=== PATIENT | female | born 1980 | race African-American/Black ===

== ENCOUNTER 2018-06-07 15:57 | Inpatient (IN) | payer BC ==
[2018-06-07] MEDS ORDERED: Lidocaine 1% 50 ML MDV INJECT PRN (16:10)
[2018-06-07] MEDS ORDERED: Butorphanol 1 MG/ML SDV IVPUSH PRN (16:10)
[2018-06-07] MEDS ORDERED: Tranexamic Acid 1,000 MG in Sodium Chloride 0.9% 100 ML IV PRN (16:10)
[2018-06-07] MEDS ORDERED: Terbutaline 1 MG/ML SDV SUBCUT PRN (16:10)
[2018-06-07] MEDS ORDERED: Sodium Chloride 0.9% 2.5 ML Syringe FLUSH PRN (16:10)
[2018-06-07] MEDS ORDERED: Ondansetron 4 MG/2 ML SDV IV PRN (16:10)
[2018-06-07] MEDS ORDERED: Misoprostol 25 MCG (1/4 of 100 MCG) Tab VAG PRN ×2 (16:10→20:00)
[2018-06-07] MEDS ORDERED: Water For Irrigation,Sterile 1,000 ML Container IRR PRN (16:10)
[2018-06-07] MEDS ORDERED: Sodium Chloride 0.9% 10 ML Syringe FLUSH PRN (16:10)
[2018-06-07] MEDS ORDERED: Methylergonovine 0.2 MG/1 ML Amp IM PRN (16:10)
[2018-06-07] MEDS ORDERED: Misoprostol 200 MCG Tab PO PRN (16:10)
[2018-06-07] MEDS ORDERED: Nalbuphine 10 MG/1 ML Vial IVPUSH PRN (16:10)
[2018-06-07] MEDS ORDERED: Carboprost Tromethamine 250 MCG/1 ML Amp IM PRN (16:10)
[2018-06-07] MEDS ORDERED: Misoprostol 25 MCG (1/4 of 100 MCG) Tab PO PRN ×2 (16:10→20:00)
[2018-06-07] MEDS ORDERED: Oxytocin/0.9 % Sodium Chloride 30 UNIT/500 ML BAG IV SCH ×2 (16:15)
[2018-06-07] MEDS: Lactated Ringers 1,000 ML IV SCH ×3 (16:30→22:19)
--- NOTE | 2018-06-07 17:41 | PCM.LDHP ---
L&D History of Present Illness - General Date of Service: 06/07/18 Admit Problem/Dx: Patient Status Order with Admit Dx/Problem 06/07/18 16:10 Patient Status [ADT] Routine Admission Diagnosis/Problem Admission Diagnosis/Problem - planned Source of Information: Patient History Limitations: Reports: No Limitations - History of Present Illness Introduction:: The patient is a 38 year old female, , who presents to Labor and Delivery at 39 weeks and 2 days for induction of labor. The patient reports feeling intermittent contractions for the past few days. She denies vaginal bleeding or leakage of fluid. She denies headache, vision changes, chest pain, shortness of breath, nausea/vomiting, or edema. She has a history of HSV and has been taking valcyclovir since 34 weeks. She denies any sign of current/ recent outbreak. She is GBS negative. She plans for an epidural. - Related Data Allergies/Adverse Reactions: Allergies Allergy/AdvReac Type Severity Reaction Status Date / Time No Known Allergies Allergy Verified 03/24/15 17:49 Home Medications: Home Meds Cholecalciferol (Vitamin D3) [Vitamin D3] 400 units PO DAILY 09/25/15 [History] Norethindrone-E.estradiol-Iron [Microgestin Fe 1-20 Tablet] 1 tab PO DAILY 09/24 [History] Pantoprazole Sodium 40 mg PO DAILY 09/25/15 [History] Sucralfate 1 tab PO QID 09/25/15 [History] Past Medical History - Past Health History Medical/Surgical History: Denies Medical/Surgical History HEENT History: Reports: None Cardiovascular History: Reports: None Respiratory History: Reports: None Gastrointestinal History: Reports: GERD Genitourinary History: Reports: None Other Genitourinary History: kidney failure 12 yo, resolved, unknown etiology 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 Musculoskeletal History: Reports: None Neurological History: Reports: None Psychiatric History: Reports: None Endocrine/Metabolic History: Reports: Obesity/BMI 30+ Immunologic History: Reports: None Oncologic (Cancer) History: Reports: None Dermatologic History: Reports: None - Infectious Disease History Infectious Disease History: Reports: Chicken Pox, Herpes - Past Surgical History Head Surgeries/Procedures: Reports: None Social & Family History - Family History Family Medical History: Noncontributory Respiratory: Reports: Asthma, COPD Other Respiratory Family Hisory: father had both Neurological: Reports: TIA, Other (See Below) Other Neurological Family History: Grandmother, stroke. Sister, lupus. Psychiatric: Reports: None Oncologic: Reports: Lung Other Oncologic Family History: Father. - Tobacco Use Smoking Status *Q: Never Smoker Second Hand Smoke Exposure: No - Caffeine Use Caffeine Use: Reports: Coffee, Soda Other Caffeine Use: 0.5 cup of coffee every weekday at work, 1 bottle of soda every weekday at work - Recreational Drug Use Recreational Drug Use: No H&P Review of Systems - Review of Systems: Review Of Systems: See Below General: Reports: No Symptoms HEENT: Reports: No Symptoms Pulmonary: Reports: No Symptoms Cardiovascular: Reports: No Symptoms Gastrointestinal: Reports: No Symptoms Genitourinary: Reports: No Symptoms Musculoskeletal: Reports: No Symptoms Skin: Reports: No Symptoms Psychiatric: Reports: No Symptoms Neurological: Reports: No Symptoms Hematologic/Lymphatic: Reports: No Symptoms Immunologic: Reports: No Symptoms L&D Exam - Exam Exam: See Below - Vital Signs Weight: 104.326 kg - OB Specific Contraction Intensity: Mild Movement: Active Heart Tones: Present Heart Tones per Min: 145 Presentation: Vertex - Henry Score Henry Score Effacement: 31-50% Henry Score Dilation: 1-2 cm Henry Score 's Station: -3 - Exam General: Alert, Oriented, Cooperative HEENT: Conjunctiva Clear, EOMI, Posterior Pharynx Clear Neck: Supple, Trachea Midline Lungs: Clear to Auscultation, Normal Respiratory Effort Cardiovascular: Regular Rate, Regular Rhythm GI/Abdominal Exam: Normal Bowel Sounds, Soft Extremities: Normal Inspection, No Pedal Edema Skin: Warm, Dry, Intact Neurological: Cranial Nerves Intact Psychiatric: Alert, Normal Affect, Normal Mood - Patient Data Lab Results Last 24 hrs: Laboratory Results - last 24 hr 06/07/18 06/07/18 Range/Units 16:28 16:28 WBC 9.32 (4.0-11.0) K/uL RBC 3.89 L (4.30-5.90) M/uL Hgb 10.5 L (12.0-16.0) g/dL Hct 32.1 L (36.0-46.0) % MCV 82.5 (80.0-98.0) fL MCH 27.0 (27.0-32.0) pg MCHC 32.7 (31.0-37.0) g/dL RDW Std Deviation 45.2 (28.0-62.0) fl RDW Coeff of Manav 15 (11.0-15.0) % Plt Count 275 (150-400) K/uL MPV 10.80 (7.40-12.00) fL Nucleated RBC % 0.0 /100WBC Nucleated RBCs # 0 K/uL Blood Type O POSITIVE Antibody Screen NEGATIVE Result Diagrams: 06/07/18 16:28 Problem List Initiated/Reviewed/Updated: Yes Orders Last 24hrs: Active Orders 24 hr Category Date Time Status Patient Status [ADT] Routine ADT 06/07/18 16:10 Active Bedrest Bathroom Privileges [RC] ASDIRECTED Care 06/07/18 16:10 Active Communication Order [RC] ASDIRECTED Care 06/07/18 16:10 Active Communication Order [RC] ASDIRECTED Care 06/07/18 16:10 Active Communication Order [RC] ASDIRECTED Care 06/07/18 16:10 Active Heart Tones [RC] CONTINUOUS Care 06/07/18 16:10 Active Non Stress Test [RC] PER UNIT ROUTINE Care 06/07/18 16:10 Active May Shower [RC] ASDIRECTED Care 06/07/18 16:10 Active Notify Provider [RC] PRN Care 06/07/18 16:10 Active Notify Provider [RC] PRN Care 06/07/18 16:10 Active Notify Provider [RC] PRN Care 06/07/18 16:10 Active Notify Provider [RC] STAT Care 06/07/18 16:10 Active Oxygen Therapy [RC] ASDIRECTED Care 06/07/18 16:10 Active Up ad Keiry [RC] ASDIRECTED Care 06/07/18 16:10 Active Vaginal Exam [RC] PRN Care 06/07/18 16:10 Active Vaginal Exam [RC] PRN Care 06/07/18 16:10 Active Vital Signs [RC] PER UNIT ROUTINE Care 06/07/18 16:10 Active Vital Signs [RC] PER UNIT ROUTINE Care 06/07/18 16:10 Active Butorphanol [Stadol] Med 06/07/18 16:10 Active 1 mg IVPUSH Q1H PRN Carboprost Tromethamine [Hemabate DS] Med 06/07/18 16:10 Active 250 mcg IM ASDIRECTED PRN Lactated Ringers [Ringers, Lactated] 1,000 ml Med 06/07/18 16:15 Active IV ASDIRECTED Lidocaine 1% [Xylocaine 1%] Med 06/07/18 16:10 Active 50 ml INJECT ONETIME PRN Methylergonovine [Methergine] Med 06/07/18 16:10 Active 0.2 mg IM ASDIRECTED PRN Nalbuphine [Nubain] Med 06/07/18 16:10 Active 10 mg IVPUSH Q1H PRN Ondansetron [Zofran] Med 06/07/18 16:10 Active 4 mg IV Q6H PRN Oxytocin/0.9 % Sodium Chloride [Oxytocin 30 Unit/500 ML Med 06/07/18 16:15 Active -NS] 30 unit in 500 ml IV TITRATE Oxytocin/0.9 % Sodium Chloride [Oxytocin 30 Unit/500 ML Med 06/07/18 16:15 Active -NS] 30 unit in 500 ml IV TITRATE Sodium Chloride 0.9% [Saline Flush] Med 06/07/18 16:10 Active 10 ml FLUSH ASDIRECTED PRN Sodium Chloride 0.9% [Saline Flush] Med 06/07/18 16:10 Active 2.5 ml FLUSH ASDIRECTED PRN Terbutaline [Brethine] Med 06/07/18 16:10 Active 0.25 mg SUBCUT ASDIRECTED PRN Tranexamic Acid [Cyklokapron] 1,000 mg Med 06/07/18 16:10 Active Sodium Chloride 0.9% [Normal Saline] 100 ml IV ONETIME Water For Irrigation,Sterile [Sterile Water for Med 06/07/18 16:10 Active Irrigation] 1,000 ml IRR ASDIRECTED PRN miSOPROStol [Cytotec] Med 06/07/18 16:10 Active 200 mcg PO ONETIME PRN miSOPROStol [Cytotec] Med 06/07/18 16:10 Active 25 mcg PO ONETIME PRN miSOPROStol [Cytotec] Med 06/07/18 20:00 Active 25 mcg PO Q4H PRN miSOPROStol [Cytotec] Med 06/07/18 16:10 Active 25 mcg VAG ONETIME PRN miSOPROStol [Cytotec] Med 06/07/18 20:00 Active 25 mcg VAG Q4H PRN Scalp Electrode [WOMSER] Per Unit Routine Oth 06/07/18 16:10 Ordered Medication Administration Instruction [OM.PC] Q3H Oth 06/07/18 16:15 Ordered Peripheral IV Insertion Adult [OM.PC] Routine Oth 06/07/18 16:10 Ordered Resuscitation Status Routine Resus Stat 06/07/18 16:10 Ordered Medication Orders Butorphanol Tartrate (Stadol) 1 mg IVPUSH Q1H PRN PRN Reason: Pain Carboprost Tromethamine (Hemabate Ds) 250 mcg IM ASDIRECTED PRN PRN Reason: Post Hemorrhage Lactated Ringer's (Ringers, Lactated) 1,000 mls @ 150 mls/hr IV ASDIRECTED CESARIO Oxytocin/Sodium Chloride (Oxytocin 30 Unit/500 Ml-Ns) 30 unit in 500 mls @ 500 mls/hr IV TITRATE CESARIO Oxytocin/Sodium Chloride (Oxytocin 30 Unit/500 Ml-Ns) 30 unit in 500 mls @ 2 mls/hr IV TITRATE CESARIO; Protocol Tranexamic Acid 1,000 mg/ (Sodium Chloride) 110 mls @ 660 mls/hr IV ONETIME PRN PRN Reason: Bleeding Lidocaine HCl (Xylocaine 1%) 50 ml INJECT ONETIME PRN PRN Reason: Laceration repair Methylergonovine Maleate (Methergine) 0.2 mg IM ASDIRECTED PRN PRN Reason: Post Hemorrhage Misoprostol (Cytotec) 200 mcg PO ONETIME PRN PRN Reason: Post Hemorrhage Misoprostol (Cytotec) 25 mcg VAG ONETIME PRN PRN Reason: Cervical Ripening Misoprostol (Cytotec) 25 mcg VAG Q4H PRN PRN Reason: Cervical Ripening Misoprostol (Cytotec) 25 mcg PO ONETIME PRN PRN Reason: Cervical Ripening Misoprostol (Cytotec) 25 mcg PO Q4H PRN PRN Reason: Cervical Ripening Nalbuphine HCl (Nubain) 10 mg IVPUSH Q1H PRN PRN Reason: Pain (severe 7-10) Ondansetron HCl (Zofran) 4 mg IV Q6H PRN PRN Reason: Nausea/Vomiting Sodium Chloride (Saline Flush) 10 ml FLUSH ASDIRECTED PRN PRN Reason: Keep Vein Open Sodium Chloride (Saline Flush) 2.5 ml FLUSH ASDIRECTED PRN PRN Reason: Keep Vein Open Sterile Water (Sterile Water For Irrigation) 1,000 ml IRR ASDIRECTED PRN PRN Reason: delivery Terbutaline Sulfate (Brethine) 0.25 mg SUBCUT ASDIRECTED PRN PRN Reason: Tacysystole Assessment/Plan Comment:: 38 year old female, , at 39 weeks and 2 days presented to L&D for induction of labor: 1. Admit 2. Induction with cytotec to pitocin 3. GBS negative- no antibiotics 4. Epidural planned 5. Anticipate 6. Dr. Rizo updated.
[2018-06-07] MEDS ORDERED: Ropivacaine 0.2% 2 MG/ML 20 ML SDV ONE (23:08)
--- NOTE | 2018-06-07 23:44 | PCM.PREANE ---
Preanesthetic Assessment - Procedure Proposed Procedure: labor epidural - Anesthesia/Transfusion/Family Hx Anesthesia History: Prior Anesthesia Without Reaction Family History of Anesthesia Reaction: No Transfusion History: No Prior Transfusion(s) - Review of Systems Other: Reports: None - Physical Assessment Height: 5 ft 6 in Weight: 104.326 kg ASA Class: 2 Mental Status: Alert & Oriented x3 Airway Class: Mallampati = 1 Dentition: Reports: Normal Dentition, Implants Thyro-Mental Finger Breadths: 3 Mouth Opening Finger Breadths: 3 ROM/Head Extension: Full - Lab Values: Laboratory Last Values WBC 9.32 K/uL (4.0-11.0) 06/07/18 16:28 RBC 3.89 M/uL (4.30-5.90) L 06/07/18 16:28 Hgb 10.5 g/dL (12.0-16.0) L 06/07/18 16:28 Hct 32.1 % (36.0-46.0) L 06/07/18 16:28 MCV 82.5 fL (80.0-98.0) 06/07/18 16:28 MCH 27.0 pg (27.0-32.0) 06/07/18 16:28 MCHC 32.7 g/dL (31.0-37.0) 06/07/18 16:28 RDW Std Deviation 45.2 fl (28.0-62.0) 06/07/18 16:28 RDW Coeff of Manav 15 % (11.0-15.0) 06/07/18 16:28 Plt Count 275 K/uL (150-400) 06/07/18 16:28 MPV 10.80 fL (7.40-12.00) 06/07/18 16:28 Nucleated RBC % 0.0 /100WBC 06/07/18 16:28 Nucleated RBCs # 0 K/uL 06/07/18 16:28 Blood Type O POSITIVE 06/07/18 16:28 Antibody Screen NEGATIVE 06/07/18 16:28 - Allergies Allergies/Adverse Reactions: Allergies Allergy/AdvReac Type Severity Reaction Status Date / Time No Known Allergies Allergy Verified 03/24/15 17:49 - Blood Blood Available: Yes Product(s) Available: PRBC - Acknowledgements Anesthesia Type Planned: Epidural Pt an Appropriate Candidate for the Planned Anesthesia: Yes Alternatives and Risks of Anesthesia Discussed w Pt/Guardian: Yes Pt/Guardian Understands and Agrees with Anesthesia Plan: Yes PreAnesthesia Questionnaire - Past Health History Medical/Surgical History: Denies Medical/Surgical History HEENT History: Reports: None Cardiovascular History: Reports: None Respiratory History: Reports: None Gastrointestinal History: Reports: GERD Genitourinary History: Reports: None Other Genitourinary History: kidney failure 12 yo, resolved, unknown etiology 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 Musculoskeletal History: Reports: None Neurological History: Reports: None Psychiatric History: Reports: None Endocrine/Metabolic History: Reports: Obesity/BMI 30+ Immunologic History: Reports: None Oncologic (Cancer) History: Reports: None Dermatologic History: Reports: None - Infectious Disease History Infectious Disease History: Reports: Chicken Pox, Herpes - Past Surgical History Head Surgeries/Procedures: Reports: None - SUBSTANCE USE Smoking Status *Q: Never Smoker Second Hand Smoke Exposure: No Recreational Drug Use History: No - HOME MEDS Home Medications: Home Meds Cholecalciferol (Vitamin D3) [Vitamin D3] 400 units PO DAILY 09/25/15 [History] Norethindrone-E.estradiol-Iron [Microgestin Fe 1-20 Tablet] 1 tab PO DAILY 09/24 [History] Pantoprazole Sodium 40 mg PO DAILY 09/25/15 [History] Sucralfate 1 tab PO QID 09/25/15 [History] - CURRENT (IN HOUSE) MEDS Current Meds: Current Medications Butorphanol Tartrate (Stadol) 1 mg IVPUSH Q1H PRN PRN Reason: Pain Carboprost Tromethamine (Hemabate Ds) 250 mcg IM ASDIRECTED PRN PRN Reason: Post Hemorrhage Lactated Ringer's (Ringers, Lactated) 1,000 mls @ 150 mls/hr IV ASDIRECTED CESARIO Last Admin: 06/07/18 22:19 Dose: 150 mls/hr Oxytocin/Sodium Chloride (Oxytocin 30 Unit/500 Ml-Ns) 30 unit in 500 mls @ 500 mls/hr IV TITRATE CESARIO Oxytocin/Sodium Chloride (Oxytocin 30 Unit/500 Ml-Ns) 30 unit in 500 mls @ 2 mls/hr IV TITRATE CESARIO; Protocol Last Admin: 06/07/18 22:18 Dose: 2 munits/min, 2 mls/hr Tranexamic Acid 1,000 mg/ (Sodium Chloride) 110 mls @ 660 mls/hr IV ONETIME PRN PRN Reason: Bleeding Lidocaine HCl (Xylocaine 1%) 50 ml INJECT ONETIME PRN PRN Reason: Laceration repair Methylergonovine Maleate (Methergine) 0.2 mg IM ASDIRECTED PRN PRN Reason: Post Hemorrhage Misoprostol (Cytotec) 200 mcg PO ONETIME PRN PRN Reason: Post Hemorrhage Misoprostol (Cytotec) 25 mcg VAG ONETIME PRN PRN Reason: Cervical Ripening Last Admin: 06/07/18 17:55 Dose: 25 mcg Misoprostol (Cytotec) 25 mcg VAG Q4H PRN PRN Reason: Cervical Ripening Misoprostol (Cytotec) 25 mcg PO ONETIME PRN PRN Reason: Cervical Ripening Last Admin: 06/07/18 17:49 Dose: 25 mcg Misoprostol (Cytotec) 25 mcg PO Q4H PRN PRN Reason: Cervical Ripening Nalbuphine HCl (Nubain) 10 mg IVPUSH Q1H PRN PRN Reason: Pain (severe 7-10) Ondansetron HCl (Zofran) 4 mg IV Q6H PRN PRN Reason: Nausea/Vomiting Sodium Chloride (Saline Flush) 10 ml FLUSH ASDIRECTED PRN PRN Reason: Keep Vein Open Sodium Chloride (Saline Flush) 2.5 ml FLUSH ASDIRECTED PRN PRN Reason: Keep Vein Open Sterile Water (Sterile Water For Irrigation) 1,000 ml IRR ASDIRECTED PRN PRN Reason: delivery Terbutaline Sulfate (Brethine) 0.25 mg SUBCUT ASDIRECTED PRN PRN Reason: Tacysystole Last Admin: 06/07/18 20:42 Dose: 0.25 mg Discontinued Medications Fentanyl/Bupivacaine HCl (Ubutxlfo-Sqbez-Ix 2 Mcg/Ml-0.125%) Confirm Administered Dose 100 mls @ as directed .ROUTE .STK-MED ONE Stop: 06/07/18 23:09 Ropivacaine (Naropin 0.2%) Confirm Administered Dose 20 ml .ROUTE .STK-MED ONE Stop: 06/07/18 23:09
[2018-06-08] MEDS ORDERED: Benzocaine/Menthol 20%-0.5% Spray 78 GM Cannister TOP PRN (02:49)
[2018-06-08] MEDS ORDERED: Docusate Sodium 100 MG Cap PO PRN (02:49)
[2018-06-08] MEDS ORDERED: Acetaminophen 500 MG Tab PO PRN ×2 (02:49)
[2018-06-08] MEDS ORDERED: Ibuprofen 400 MG Tab PO PRN (02:49)
[2018-06-08] MEDS ORDERED: oxyCODONE 5 MG Tab PO PRN (02:49)
[2018-06-08] MEDS ORDERED: Bisacodyl 10 MG Supp RECTAL PRN (02:49)
[2018-06-08] MEDS ORDERED: Witch Hazel Medicated Pads 40/Jar TOP PRN (02:49)
[2018-06-08] MEDS ORDERED: Lanolin 100% Cream 7 GM Tube TOP PRN (02:49)
--- NOTE | 2018-06-08 02:53 | PCM.DEL ---
L & D Note - General Info Date of Service: 06/08/18 Mother's Due Date: 06/12/18 - Delivery Note Labor: Induced by Oxytocin Cervical Ripening Method: Misoprostil Delivery Outcome: Livebirth Infant Delivery Method: Spontaneous Vaginal Delivery-Single Presentation: Vertex Nuchal Cord: None Anesthesia Type: Epidural Laceration: None Placenta: Intact, Spontaneous Cord: 3 Vessels Resuscitation Needed: No [place]: Stimulated, Warmed, Lucile Used Score 1 min: 9 Score 5 min: 9 Second Stage Interventions: Reports: Pushing, Pulls Own Legs Back Delivery Comments (Free Text/Narrative):: of viable female, head delivered with good pushing, body followed easily. to mother's abdomen with RN at bedside for evaluation. Cord clamped x2 and cut by FOB. Cord blood collected. Placenta delivered grossly intact. Inspection noted intact perineum, EBL <100, APGARS 9/9, weight 7 lbs, 11 oz. Mother and baby left in stable condition for recovery. Induction Criteria - Henry Score Henry Score Dilation: 1-2 cm Henry Score Effacement: 40-50% Henry Score Infant's Station: -3 - Induction Gestational Age >/= 39 wks: Yes Estimated Pelvis: Reports: Adequate Reassuring Monitoring Strip: Yes Absence of Tachy Systole: Yes - Augmentation Estimated Pelvis: Reports: Adequate Weight Estimated:: Reports: AGA Reassuring Monitoring Strip: Yes Absence of Tachy Systole: Yes - General Info Date of Service: 06/08/18 Functional Status: Reports: Pain Controlled - Review of Systems General: Reports: No Symptoms HEENT: Reports: No Symptoms Pulmonary: Reports: No Symptoms Cardiovascular: Reports: No Symptoms Gastrointestinal: Reports: No Symptoms Genitourinary: Reports: No Symptoms Musculoskeletal: Reports: No Symptoms Skin: Reports: No Symptoms Neurological: Reports: No Symptoms Psychiatric: Reports: No Symptoms - Patient Data Weight - Most Recent: 104.326 kg Lab Results Last 24 Hours: Laboratory Results - last 24 hr 06/07/18 06/07/18 Range/Units 16:28 16:28 WBC 9.32 (4.0-11.0) K/uL RBC 3.89 L (4.30-5.90) M/uL Hgb 10.5 L (12.0-16.0) g/dL Hct 32.1 L (36.0-46.0) % MCV 82.5 (80.0-98.0) fL MCH 27.0 (27.0-32.0) pg MCHC 32.7 (31.0-37.0) g/dL RDW Std Deviation 45.2 (28.0-62.0) fl RDW Coeff of Manav 15 (11.0-15.0) % Plt Count 275 (150-400) K/uL MPV 10.80 (7.40-12.00) fL Nucleated RBC % 0.0 /100WBC Nucleated RBCs # 0 K/uL Blood Type O POSITIVE Antibody Screen NEGATIVE Med Orders - Current: Current Medications Butorphanol Tartrate (Stadol) 1 mg IVPUSH Q1H PRN PRN Reason: Pain Carboprost Tromethamine (Hemabate Ds) 250 mcg IM ASDIRECTED PRN PRN Reason: Post Hemorrhage Lactated Ringer's (Ringers, Lactated) 1,000 mls @ 150 mls/hr IV ASDIRECTED CESARIO Last Admin: 06/07/18 22:19 Dose: 150 mls/hr Oxytocin/Sodium Chloride (Oxytocin 30 Unit/500 Ml-Ns) 30 unit in 500 mls @ 500 mls/hr IV TITRATE CESARIO Oxytocin/Sodium Chloride (Oxytocin 30 Unit/500 Ml-Ns) 30 unit in 500 mls @ 2 mls/hr IV TITRATE CESARIO; Protocol Last Titration: 06/08/18 00:16 Dose: 4 munits/min, 4 mls/hr Tranexamic Acid 1,000 mg/ (Sodium Chloride) 110 mls @ 660 mls/hr IV ONETIME PRN PRN Reason: Bleeding Lidocaine HCl (Xylocaine 1%) 50 ml INJECT ONETIME PRN PRN Reason: Laceration repair Methylergonovine Maleate (Methergine) 0.2 mg IM ASDIRECTED PRN PRN Reason: Post Hemorrhage Misoprostol (Cytotec) 200 mcg PO ONETIME PRN PRN Reason: Post Hemorrhage Misoprostol (Cytotec) 25 mcg VAG ONETIME PRN PRN Reason: Cervical Ripening Last Admin: 06/07/18 17:55 Dose: 25 mcg Misoprostol (Cytotec) 25 mcg VAG Q4H PRN PRN Reason: Cervical Ripening Misoprostol (Cytotec) 25 mcg PO ONETIME PRN PRN Reason: Cervical Ripening Last Admin: 06/07/18 17:49 Dose: 25 mcg Misoprostol (Cytotec) 25 mcg PO Q4H PRN PRN Reason: Cervical Ripening Nalbuphine HCl (Nubain) 10 mg IVPUSH Q1H PRN PRN Reason: Pain (severe 7-10) Ondansetron HCl (Zofran) 4 mg IV Q6H PRN PRN Reason: Nausea/Vomiting Sodium Chloride (Saline Flush) 10 ml FLUSH ASDIRECTED PRN PRN Reason: Keep Vein Open Sodium Chloride (Saline Flush) 2.5 ml FLUSH ASDIRECTED PRN PRN Reason: Keep Vein Open Sterile Water (Sterile Water For Irrigation) 1,000 ml IRR ASDIRECTED PRN PRN Reason: delivery Terbutaline Sulfate (Brethine) 0.25 mg SUBCUT ASDIRECTED PRN PRN Reason: Tacysystole Last Admin: 06/07/18 20:42 Dose: 0.25 mg Discontinued Medications Fentanyl/Bupivacaine HCl (Kebocfyv-Jiwbb-Mc 2 Mcg/Ml-0.125%) Confirm Administered Dose 100 mls @ as directed .ROUTE .STK-MED ONE Stop: 06/07/18 23:09 Ropivacaine (Naropin 0.2%) Confirm Administered Dose 20 ml .ROUTE .STK-MED ONE Stop: 06/07/18 23:09 - Exam General: Alert, Oriented, Cooperative, No Acute Distress Lungs: Clear to Auscultation, Normal Respiratory Effort Cardiovascular: Regular Rate, Regular Rhythm GI/Abdominal Exam: Normal Bowel Sounds, Soft (Female) Exam: Normal External Exam, Normal Bimanual Exam, Vaginal Bleeding Extremities: Normal Inspection, No Pedal Edema Skin: Warm, Dry, Intact Neurological: No New Focal Deficit Psy/Mental Status: Alert, Normal Affect, Normal Mood - Problem List Review Problem List Initiated/Reviewed/Updated: Yes - Plan Plan:: 38 year old female, , at 39 weeks and 2 days presented to L&D for induction of labor: 1. Admit 2. Induction with cytotec to pitocin 3. GBS negative- no antibiotics 4. Epidural planned 5. Anticipate 6. Dr. Rizo updated. of viable female, routine post care, likely discharge tomorrow.
[2018-06-08] MEDS: Ibuprofen 800 MG Tab PO PRN (11:09)
[2018-06-09] MEDS: Ibuprofen 800 MG Tab PO PRN (07:46)
--- NOTE | 2018-06-09 07:47 | PCM.DCSUM1 ---
Discharge Summary - Hospital Course HPI Initial Comments: The patient is a 38 year old female, now , who is post day 1 from of a viable girl. Patient reports she is doing well. Pain well controlled , little vaginal bleeding, ambulating without difficulty, and going to the bathroom without difficulty. She states her baby is doing well. She is breast feeding and supplementing with formula. Diagnosis: Stroke: No - Discharge Data Discharge Date: 06/09/18 Discharge Disposition: Home, Self-Care 01 Condition: Good - Patient Instructions Diet: Usual Diet as Tolerated Activity: As Tolerated Driving: Do Not Drive Showering/Bathing: May Shower Notify Provider of: Fever, Increased Pain, Swelling and Redness, Drainage, Nausea and/or Vomiting Other/Special Instructions: You will follow up in the clinic at 6 weeks post . - Discharge Plan *PRESCRIPTION DRUG MONITORING PROGRAM REVIEWED*: No *COPY OF PRESCRIPTION DRUG MONITORING REPORT IN PATIENT SUNNY: No Home Medications: Home Meds Cholecalciferol (Vitamin D3) [Vitamin D3] 400 units PO DAILY 09/25/15 [History] Norethindrone-E.estradiol-Iron [Microgestin Fe 1-20 Tablet] 1 tab PO DAILY 09/24 [History] Pantoprazole Sodium 40 mg PO DAILY 09/25/15 [History] Sucralfate 1 tab PO QID 09/25/15 [History] Referrals: [facility] [Outside] Flori Lua CNM [Primary Care Provider] - 07/13/18 10:45 am - Discharge Summary/Plan Comment DC Time >30 min.: No Discharge Summary/Plan Comment: Follow up at OB clinic for post visit in 6 weeks. - General Info Date of Service: 06/09/18 Functional Status: Reports: Pain Controlled - Review of Systems General: Reports: No Symptoms HEENT: Reports: No Symptoms Pulmonary: Reports: No Symptoms Cardiovascular: Reports: No Symptoms Gastrointestinal: Reports: No Symptoms Genitourinary: Reports: No Symptoms Musculoskeletal: Reports: No Symptoms Skin: Reports: No Symptoms Neurological: Reports: No Symptoms Psychiatric: Reports: No Symptoms - Patient Data Vitals - Most Recent: Last Vital Signs Temp 97.5 F 06/09/18 05:00 Pulse 84 06/09/18 05:00 Resp 15 06/09/18 05:00 BP 111/66 06/09/18 05:00 Pulse Ox 95 06/09/18 05:00 Weight - Most Recent: 104.326 kg Med Orders - Current: Current Medications Acetaminophen (Tylenol Extra Strength) 500 mg PO Q4H PRN PRN Reason: Pain Acetaminophen (Tylenol Extra Strength) 1,000 mg PO Q4H PRN PRN Reason: Pain Last Admin: 06/08/18 21:18 Dose: 1,000 mg Benzocaine/Menthol (Dermoplast Pain Relief 20%-0.5% Elmer) 78 gm TOP ASDIRECTED PRN PRN Reason: Perineal Comfort Measure Bisacodyl (Dulcolax) 10 mg RECTAL ONETIME PRN PRN Reason: Constipation Docusate Sodium (Colace) 100 mg PO BID PRN PRN Reason: Constipation Emollient Ointment (Lansinoh Hpa) 0 gm TOP ASDIRECTED PRN PRN Reason: Sore Nipples Last Admin: 06/08/18 19:45 Dose: 1 tube Ibuprofen (Motrin) 400 mg PO Q4H PRN PRN Reason: Pain Ibuprofen (Motrin) 800 mg PO Q6H PRN PRN Reason: Pain Last Admin: 06/08/18 11:09 Dose: 800 mg Oxycodone HCl (Oxycodone) 5 mg PO Q2H PRN PRN Reason: Pain Last Admin: 06/09/18 04:56 Dose: 5 mg Witch Dawna (Tucks) 1 pad TOP ASDIRECTED PRN PRN Reason: comfort care Discontinued Medications Butorphanol Tartrate (Stadol) 1 mg IVPUSH Q1H PRN PRN Reason: Pain Carboprost Tromethamine (Hemabate Ds) 250 mcg IM ASDIRECTED PRN PRN Reason: Post Hemorrhage Lactated Ringer's (Ringers, Lactated) 1,000 mls @ 150 mls/hr IV ASDIRECTED CESARIO Last Admin: 06/07/18 22:19 Dose: 150 mls/hr Oxytocin/Sodium Chloride (Oxytocin 30 Unit/500 Ml-Ns) 30 unit in 500 mls @ 500 mls/hr IV TITRATE CESARIO Oxytocin/Sodium Chloride (Oxytocin 30 Unit/500 Ml-Ns) 30 unit in 500 mls @ 2 mls/hr IV TITRATE CESARIO; Protocol Last Titration: 06/08/18 00:16 Dose: 4 munits/min, 4 mls/hr Tranexamic Acid 1,000 mg/ (Sodium Chloride) 110 mls @ 660 mls/hr IV ONETIME PRN PRN Reason: Bleeding Fentanyl/Bupivacaine HCl (Nmbqnrqs-Tjrtq-Om 2 Mcg/Ml-0.125%) Confirm Administered Dose 100 mls @ as directed .ROUTE .[employer] ONE Stop: 06/07/18 23:09 Lidocaine HCl (Xylocaine 1%) 50 ml INJECT ONETIME PRN PRN Reason: Laceration repair Methylergonovine Maleate (Methergine) 0.2 mg IM ASDIRECTED PRN PRN Reason: Post Hemorrhage Misoprostol (Cytotec) 200 mcg PO ONETIME PRN PRN Reason: Post Hemorrhage Misoprostol (Cytotec) 25 mcg VAG ONETIME PRN PRN Reason: Cervical Ripening Last Admin: 06/07/18 17:55 Dose: 25 mcg Misoprostol (Cytotec) 25 mcg VAG Q4H PRN PRN Reason: Cervical Ripening Misoprostol (Cytotec) 25 mcg PO ONETIME PRN PRN Reason: Cervical Ripening Last Admin: 06/07/18 17:49 Dose: 25 mcg Misoprostol (Cytotec) 25 mcg PO Q4H PRN PRN Reason: Cervical Ripening Nalbuphine HCl (Nubain) 10 mg IVPUSH Q1H PRN PRN Reason: Pain (severe 7-10) Ondansetron HCl (Zofran) 4 mg IV Q6H PRN PRN Reason: Nausea/Vomiting Ropivacaine (Naropin 0.2%) Confirm Administered Dose 20 ml .ROUTE .[employer] ONE Stop: 06/07/18 23:09 Sodium Chloride (Saline Flush) 10 ml FLUSH ASDIRECTED PRN PRN Reason: Keep Vein Open Sodium Chloride (Saline Flush) 2.5 ml FLUSH ASDIRECTED PRN PRN Reason: Keep Vein Open Sterile Water (Sterile Water For Irrigation) 1,000 ml IRR ASDIRECTED PRN PRN Reason: delivery Terbutaline Sulfate (Brethine) 0.25 mg SUBCUT ASDIRECTED PRN PRN Reason: Tacysystole Last Admin: 06/07/18 20:42 Dose: 0.25 mg - Exam General: Reports: Alert, Oriented, Cooperative Lungs: Reports: Clear to Auscultation, Normal Respiratory Effort Cardiovascular: Reports: Regular Rate, Regular Rhythm GI/Abdominal Exam: Normal Bowel Sounds, Soft, Non-Tender (Female) Exam: Other (uterus below umbilicus) Extremities: Normal Inspection, No Pedal Edema Skin: Reports: Warm, Dry, Intact Neurological: Reports: No New Focal Deficit Psy/Mental Status: Reports: Alert, Normal Affect, Normal Mood
[2018-06-09 08:09] VITALS: BP 108/70
== END 2018-06-09 11:45 | disposition home or self-care (01) | DRG 560 ==
LOC: MW.OBCHECK 15:57 → MW.OB 16:00 → MW.OBCHECK 16:10 → MW.OB 16:10 → OBSVTOIN 06-08 02:31 → MW.OB 06-08 06:10
PROVIDERS: ADMIT Obstetrics & Gynecology; ATTEND Obstetrics & Gynecology
PROC: 10E0XZZ Delivery of Products of Conception, External Approach (ICD-10-PCS; principal; 2018-06-08)
PROC: 3E0P7VZ Introduction of Hormone into Female Reproductive, Via Natural or Artificial Opening (ICD-10-PCS; 2018-06-08)
PROC: 3E033VJ Introduction of Other Hormone into Peripheral Vein, Percutaneous Approach (ICD-10-PCS; 2018-06-08)
PROC: 00HU33Z Insertion of Infusion Device into Spinal Canal, Percutaneous Approach (ICD-10-PCS; 2018-06-08)
DX: O98.52 Other viral diseases complicating childbirth (principal); Z3A.39 39 weeks gestation of pregnancy; Z37.0 Single live birth; Z79.899 Other long term (current) drug therapy
CPT/HCPCS: 36415; 51702; 59025; 59409; 85027; 86850; 86900; 86901; A9270-GY; J2590; J2795; J3105; J7120

== ENCOUNTER 2020-02-25 13:40 | Emergency (ER) | payer SELFPAY ==
--- NOTE | 2020-02-25 16:37 | EDM.PDOC ---
ED HPI GENERAL MEDICAL PROBLEM - General Chief Complaint: Neuro Symptoms/Deficits Stated Complaint: NUMBNESS CHEST ZHU Time Seen by Provider: 02/25/20 16:04 Source of Information: Reports: Patient History Limitations: Reports: No Limitations - History of Present Illness INITIAL COMMENTS - FREE TEXT/NARRATIVE: 40-year-old female with history of anemia presents with stroke like symptoms. She woke up yesterday at 0500 with right upper extremity tingling and numbness, it later transitioned to perioral numbness. Symptoms waxes and wanes. Today she woke up and started complaining of left hand numbness, again waxes and wanes. She then started complaining of right eye blurry vision and flashing, followed by left sided headache localized to the left frontal lobe, described as pressure sensation, nonradiating. Her headache started 20 minutes ago. She says she had a transient episode of vision loss lasting seconds in her left eye and she felt short of breath. Patient denies fever, chills, abdominal pain. ROS: A 10-point review of systems, other than pertinent positives and negatives as stated per HPI, is otherwise negative Past medical history: No additional pertinent history Past Surgical history: No additional pertinent history Social history: No additional pertinent history Family history: No additional pertinent history PHYSICAL EXAM General: AOx4, GCS = 15, anxious HEENT: dry mucous membrane Neck: supple, no meningismus, no Kernig or Brudzinski Cardiac: S1S2 RRR Respiratory: CTAB, no crackles or rales, no wheezing Abdomen: Soft, nontender, no rebound or guarding, nondistended, no pulsatile mass. Back: nontender Musculoskeletal: NVI distally, no deformity Neuro: No focal deficits, CN 2 - 12 WNL. headache Pain Score (Numeric/FACES): 8 - Related Data Allergies Allergy/AdvReac Type Severity Reaction Status Date / Time No Known Allergies Allergy Verified 02/25/20 16:10 Home Meds: Home Meds Cholecalciferol (Vitamin D3) [Vitamin D3] 400 units PO DAILY 09/25/15 [History] Ascorbic Acid [Vitamin C] 02/25/20 [History] Control 02/25/20 [History] Iron,Carb/Vit C/Vit B12/Folic [Iron 100 Plus Tablet] 02/25/20 [History] Selium 02/25/20 [History] Past Medical History - Past Health History Medical/Surgical History: Denies Medical/Surgical History HEENT History: Reports: None Cardiovascular History: Reports: None Respiratory History: Reports: None Gastrointestinal History: Reports: GERD Genitourinary History: Reports: None Other Genitourinary History: kidney failure 12 yo, resolved, unknown etiology 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 Musculoskeletal History: Reports: None Neurological History: Reports: None Psychiatric History: Reports: None Endocrine/Metabolic History: Reports: Obesity/BMI 30+ Immunologic History: Reports: None Oncologic (Cancer) History: Reports: None Dermatologic History: Reports: None - Infectious Disease History Infectious Disease History: Reports: Chicken Pox, Herpes - Past Surgical History Head Surgeries/Procedures: Reports: None Social & Family History - Family History Family Medical History: Noncontributory Respiratory: Reports: Asthma, COPD Other Respiratory Family Hisory: father had both Neurological: Reports: TIA, Other (See Below) Other Neurological Family History: Grandmother, stroke. Sister, lupus. Psychiatric: Reports: None Oncologic: Reports: Lung Other Oncologic Family History: Father. - Tobacco Use Smoking Status *Q: Never Smoker - Caffeine Use Caffeine Use: Reports: Coffee, Soda Other Caffeine Use: 0.5 cup of coffee every weekday at work, 1 bottle of soda every weekday at work - Recreational Drug Use Recreational Drug Use: No ED ROS GENERAL - Review of Systems Review Of Systems: See Below (see dictation) ED EXAM, GENERAL - Physical Exam Exam: See Below (see dictation) EKG INTERPRETATION EKG Interpretation Comments: EK bpm, NSR, normal QRS interval, no STEMI. EKG and rhythm strip interpreted by me at 1405 Course - Vital Signs Last Recorded V/S: Last Vital Signs Temp 97.7 F 02/25/20 13:40 Pulse 97 02/25/20 13:40 Resp 18 02/25/20 13:40 BP 137/104 H 02/25/20 13:40 Pulse Ox 100 02/25/20 13:40 - Orders/Labs/Meds Orders: Active Orders 24 hr Category Date Time Status EKG 12 Lead [EKG Documentation Completion] [RC] STAT Care 02/25/20 14:05 Active Head wo Cont [CT] Routine Exams 02/25/20 16:22 Ordered - Re-Assessments/Exams Free Text/Narrative Re-Assessment/Exam: 02/25/20 1722 After prolonged observation in the ER, the patient improved and is currently stable for discharge. I performed a repeat exam and did not appreciate new abnormal findings. Patient exhibits normal vital signs and has a normal gait on road test. I repeated her neurologic exam, her NIHSS = 0. I advised the patient to return to the ER for reevaluation if symptoms worsened, including fever, worsening pain, or any other worrisome symptoms. I instructed the patient to follow up with their PCP within 2-3 days. MEDICAL DECISION MAKING: I reviewed the patients past medical records, lab and radiographic findings. I discussed the case with the patient. My differential diagnosis included: Conversion disorder, anxiety, low suspicion for intracranial process. tPA was considered but withheld secondary to nonfocal laterality. Symptoms were not consistent with CVA. Her NIHSS = 0, she had no hypoesthesia or hyperesthesia or paresthesia on my physical exam. I suspect her symptoms to be secondary to anxiety or psychogenic conversion disorder. Patient is stable for outpatient follow-up with neurology in the clinic. Departure - Departure Time of Disposition: 17:23 Disposition: Home, Self-Care 01 Condition: Good Clinical Impression: Paresthesia of arm, Numbness - Discharge Information *PRESCRIPTION DRUG MONITORING PROGRAM REVIEWED*: Not Applicable *COPY OF PRESCRIPTION DRUG MONITORING REPORT IN PATIENT SUNNY: Not Applicable Instructions: Paresthesia, [id number] Referrals: PCP,None [Primary Care Provider] - Forms: ED Department Discharge Additional Instructions: The need for follow-up, as well as the timing and circumstances, are variable depending upon the specifics of your emergency department visit. If you don't have a primary care physician on staff, we will provide you with a referral. We always advise you to contact your personal physician following an emergency department visit to inform them of the circumstance of the visit and for follow-up with them and/or the need for any referrals to a consulting specialist. The emergency department will also refer you to a specialist when appropriate. This referral assures that you have the opportunity for follow-up care with a specialist. All of these measure are taken in an effort to provide you with opt imal care, which includes your follow-up. Under all circumstances we always encourage you to contact your private physician who remains a resource for coordinating your care. When calling for follow-up care, please make the office aware that this follow-up is from your recent emergency room visit. If for any reason you are refused follow-up, please contact the [facility] Emergency Department at and asked to speak to the emergency department charge nurse. Neurology [facility] - Neurology Professional Building [address] [place] [address], [address] [place] [address] Sepsis Event Note (ED) - Evaluation Sepsis Screening Result: No Definite Risk - Focused Exam Vital Signs: Vital Signs Temp Pulse Resp BP Pulse Ox 02/25/20 13:40 97.7 F 97 18 137/104 H 100 - My Orders Last 24 Hours: My Active Orders 02/25/20 14:05 EKG 12 Lead [EKG Documentation Completion] [RC] STAT 02/25/20 16:22 Head wo Cont [CT] Routine - Assessment/Plan Last 24 Hours: My Active Orders 02/25/20 14:05 EKG 12 Lead [EKG Documentation Completion] [RC] STAT 02/25/20 16:22 Head wo Cont [CT] Routine
--- NOTE | 2020-02-25 17:07 | CR ---
Chest: Portable view of the chest was obtained. Comparison: Prior chest x-ray of 06/18/19. Heart size and mediastinum are normal. Lungs are clear with no acute parenchymal change. Bony structures are grossly intact. Impression: 1. Nothing acute is seen on portable chest x-ray. Diagnostic code #1 Study was dictated in MDT
[2020-02-25 17:29] VITALS: BP 107/81; PULSE 86
[2020-02-25 17:32] LABS: CARBON DIOXIDE,CO2 24.4 mmol/L (21.0-32.0); CHLORIDE,CL 101 mmol/L (98-107); GLUCOSE RANDOM 103 mg/dL (74-106); POTASSIUM,K 3.4 mmol/L (3.5-5.1); SODIUM,NA 138 mmol/L (136-145)
[2020-02-25 17:33] LABS: BLOOD UREA NITROGEN,BUN 10 mg/dL (7.0-18.0)
--- NOTE | 2020-02-25 17:34 | CT ---
Head CT Technique: Multiple axial brain were obtained. Intravenous contrast was not utilized. Comparison: No prior intracranial him imaging is available. Findings: Ventricles along with basal cisterns and sulci over the convexities appear within normal limits for the patient's age. No abnormal parenchymal densities are seen. No evidence of intracranial hemorrhage. No midline shift or mass effect is appreciated. Bone window settings were reviewed. No acute calvarial finding is appreciated. Impression: 1. Nothing acute is appreciated on noncontrast head CT exam. Diagnostic code #1 MTDD
== END 2020-02-25 17:29 | disposition home or self-care (01) ==
LOC: MW.ED 13:40
DX: R20.2 Paresthesia of skin (principal); R20.0 Anesthesia of skin; E66.9 Obesity, unspecified; Z68.33 Body mass index [BMI] 33.0-33.9, adult
CPT/HCPCS: 36415; 70450; 70450-26; 71045; 71045-26; 80053; 80305-QW; 81001; 81025; 84484; 85025; 85610; 85730; 93005; 99282; 99284-25

== ENCOUNTER 2020-06-28 08:30 | Emergency (ER) | payer OTHER ==
[2020-06-28] MEDS ORDERED: Morphine 4 MG/ML Syringe IVPUSH ONE (08:39)
[2020-06-28] MEDS ORDERED: Dexamethasone 10 MG/ML SDV IVPUSH ONE (08:39)
[2020-06-28] MEDS ORDERED: Aspirin 81 MG Tab.Chew PO ONE (08:39)
[2020-06-28] MEDS ORDERED: Ondansetron 4 MG/2 ML SDV IVPUSH ONE (08:39)
[2020-06-28] MEDS ORDERED: Sodium Chloride 0.9% 1,000 ML IV ONE (08:39)
[2020-06-28] MEDS ORDERED: Sodium Chloride 0.9% 2.5 ML Syringe FLUSH PRN (08:39)
[2020-06-28] MEDS ORDERED: Sodium Chloride 0.9% 10 ML Syringe FLUSH PRN (08:39)
--- NOTE | 2020-06-28 08:39 | EDM.PDOC ---
ED HPI GENERAL MEDICAL PROBLEM - General Chief Complaint: Chest Pain Stated Complaint: TIGHTNESS IN CHEST NUMBESS Time Seen by Provider: 06/28/20 08:45 Source of Information: Reports: Patient History Limitations: Reports: No Limitations - History of Present Illness INITIAL COMMENTS - FREE TEXT/NARRATIVE: 40-year-old female past medical history Sjogren's disease presents for multiple complaints. Patient states that for the last couple of days she has had headaches, body aches. Last night developed worsening headache continued through the morning. She also developed chest pressure "like somebody sitting on my chest" associated with shortness of breath. She denies fevers, cough. She has had a couple episodes of emesis. She has some generalized abdominal cramping pains but nothing localized. She feels generalized weakness. She notes that she called her neurologist who considered putting her on a course of prednisone but preferred that she come to the emergency department for more comprehensive evaluation and assessment. chest, abdominal Pain Score (Numeric/FACES): 8 - Related Data Allergies Allergy/AdvReac Type Severity Reaction Status Date / Time No Known Allergies Allergy Verified 06/28/20 08:39 Home Meds: Home Meds Cholecalciferol (Vitamin D3) [Vitamin D3] 2,000 units PO DAILY 09/25/15 [History] Ascorbic Acid [Vitamin C] 1 tab PO DAILY 02/25/20 [History] Control 02/25/20 [History] Iron,Carb/Vit C/Vit B12/Folic [Iron 100 Plus Tablet] 65 mg PO DAILY 02/25/20 [History] Selium 200 mg PO ASDIRECTED 02/25/20 [History] Biotin 5,000 mcg PO DAILY 06/28/20 [History] Fish Oil/Borage/Flax/Om3,6,9 1 [Lester 3-6-9 Complex Softgel] 1 tab PO DAILY 06/28/20 [History] predniSONE [Prednisone] 40 mg PO QAM 5 Days #10 tablet 06/28/20 [Rx] Past Medical History - Past Health History Medical/Surgical History: Denies Medical/Surgical History HEENT History: Reports: None Cardiovascular History: Reports: None Respiratory History: Reports: None Gastrointestinal History: Reports: GERD Genitourinary History: Reports: None Other Genitourinary History: kidney failure 12 yo, resolved, unknown etiology [employer]HOU[employer]ER History: Reports: , Spontaneous , Other (See Below) Other [employer]SE [employer]ER History: Retained placenta after previous vaginal delivery in 2015. Musculoskeletal History: Reports: None Neurological History: Reports: None Psychiatric History: Reports: None Endocrine/Metabolic History: Reports: Obesity/BMI 30+ Immunologic History: Reports: None Oncologic (Cancer) History: Reports: None Dermatologic History: Reports: None - Infectious Disease History Infectious Disease History: Reports: Chicken Pox, Herpes - Past Surgical History Head Surgeries/Procedures: Reports: None Social & Family History - Family History Family Medical History: No Pertinent Family History Respiratory: Reports: Asthma, COPD Other Respiratory Family Hisory: father had both Neurological: Reports: TIA, Other (See Below) Other Neurological Family History: Grandmother, stroke. Sister, lupus. Psychiatric: Reports: None Oncologic: Reports: Lung Other Oncologic Family History: Father. - Caffeine Use Caffeine Use: Reports: Coffee, Soda Other Caffeine Use: 0.5 cup of coffee every weekday at work, 1 bottle of soda every weekday at work ED ROS GENERAL - Review of Systems Review Of Systems: Comprehensive ROS is negative, except as noted in HPI. ED EXAM, GENERAL - Physical Exam Exam: See Below Exam Limited By: No Limitations General Appearance: Alert, WD/WN, No Apparent Distress, Anxious Eye Exam: Bilateral Eye: EOMI, PERRL Throat/Mouth: Normal Voice, No Airway Compromise Head: Atraumatic, Normocephalic Neck: Normal Inspection Respiratory/Chest: No Respiratory Distress, Lungs Clear, Normal Breath Sounds, No Accessory Muscle Use Cardiovascular: Normal Peripheral Pulses, No Edema, Tachycardia GI/Abdominal: Soft, Non-Tender Extremities: Normal Inspection Neurological: Alert, Oriented, CN II-XII Intact, Normal Cognition, No Motor/Sensory Deficits Psychiatric: Normal Affect, Normal Mood Skin Exam: Warm, Dry, Intact, Normal Color #1 Interpretation EKG Date: 06/28/20 Time: 08:28 Rhythm: Other (tachycardia) Rate (Beats/Min): 110 [place]: Normal P-Wave: Present QRS: Normal ST-T: Normal QT: Normal FL/PQ Interval: 176 Comparison: NA - No Prior EKG EKG Interpretation Comments: non-ischemic, tachycardia Course - Vital Signs Last Recorded V/S: Last Vital Signs Temp 98.1 F 06/28/20 08:35 Pulse 72 06/28/20 10:30 Resp 16 06/28/20 09:31 BP 118/82 06/28/20 10:30 Pulse Ox 99 06/28/20 10:30 - Orders/Labs/Meds Orders: Active Orders 24 hr Category Date Time Status EKG Documentation Completion [RC] STAT Care 06/28/20 08:39 Active Sodium Chloride 0.9% [Saline Flush] Med 06/28/20 08:39 Active 10 ml FLUSH ASDIRECTED PRN Sodium Chloride 0.9% [Saline Flush] Med 06/28/20 08:39 Active 2.5 ml FLUSH ASDIRECTED PRN Saline Lock Insert [OM.PC] Stat Oth 06/28/20 08:40 Ordered Medication Orders Sodium Chloride (Saline Flush) 10 ml FLUSH ASDIRECTED PRN PRN Reason: Keep Vein Open Last Admin: 06/28/20 08:49 Dose: 10 ml Documented by: JASMINE Sodium Chloride (Saline Flush) 2.5 ml FLUSH ASDIRECTED PRN PRN Reason: Keep Vein Open Last Admin: 06/28/20 08:49 Dose: 2.5 ml Documented by: JASMINE Labs: Laboratory Tests 06/28/20 06/28/20 06/28/20 Range/Units 08:35 08:35 08:35 WBC 7.05 (4.0-11.0) K/uL RBC 4.57 (4.30-5.90) M/uL Hgb 12.9 (12.0-16.0) g/dL Hct 41.1 (36.0-46.0) % MCV 89.9 (80.0-98.0) fL MCH 28.2 (27.0-32.0) pg MCHC 31.4 (31.0-37.0) g/dL RDW Std Deviation 44.5 (28.0-62.0) fl RDW Coeff of Manav 14 (11.0-15.0) % Plt Count 320 (150-400) K/uL MPV 10.40 (7.40-12.00) fL Neut % (Auto) 44.9 L (48.0-80.0) % Lymph % (Auto) 43.1 H (16.0-40.0) % [place] % (Auto) 8.1 (0.0-15.0) % Eos % (Auto) 3.0 (0.0-7.0) % Baso % (Auto) 0.9 (0.0-1.5) % Neut # (Auto) 3.2 (1.4-5.7) K/uL Lymph # (Auto) 3.0 H (0.6-2.4) K/uL [place] # (Auto) 0.6 (0.0-0.8) K/uL Eos # (Auto) 0.2 (0.0-0.7) K/uL Baso # (Auto) 0.1 (0.0-0.1) K/uL Nucleated RBC % 0.0 /100WBC Nucleated RBCs # 0 K/uL INR APTT (18.6-31.3) SEC D-Dimer, Quantitative (0.0-0.50) mg/L FEU Lactate 1.2 (0.20-2.00) mmol/L Sodium 140 (136-145) mmol/L Potassium 3.8 (3.5-5.1) mmol/L Chloride 106 (98-107) mmol/L Carbon Dioxide 24.4 (21.0-32.0) mmol/L BUN 10 (7.0-18.0) mg/dL Creatinine 1.1 H (0.6-1.0) mg/dL Est Cr Clr Drug Dosing 64.28 mL/min Estimated GFR (MDRD) 55.3 ml/min Glucose 111 H (74-106) mg/dL Calcium 8.8 (8.5-10.1) mg/dL Magnesium 2.2 (1.8-2.4) mg/dL Total Bilirubin 0.2 (0.2-1.0) mg/dL AST 21 (15-37) IU/L ALT 30 (14-63) IU/L Alkaline Phosphatase 80 (46-116) U/L Troponin I < 0.050 (0.000-0.056) ng/mL C-Reactive Protein 0.50 (0.00-0.90) mg/dL Total Protein 8.7 H (6.4-8.2) g/dL Albumin 3.7 (3.4-5.0) g/dL Globulin 5.0 H (2.6-4.0) g/dL Albumin/Globulin Ratio 0.7 L (0.9-1.6) Lipase 90 (73-393) U/L TSH 3rd Generation 0.95 (0.36-3.74) uIU/mL Urine Color Urine Appearance Urine pH (5.0-8.0) Ur Specific [place] (1.001-1.035) Urine Protein (NEGATIVE) mg/dL Urine Glucose (UA) (NEGATIVE) mg/dL Urine Ketones (NEGATIVE) mg/dL Urine Occult Blood (NEGATIVE) Urine Nitrite (NEGATIVE) Urine Bilirubin (NEGATIVE) Urine Urobilinogen (<2.0) EU/dL Ur Leukocyte Esterase (NEGATIVE) Urine HCG, Qual (NEGATIVE) Influenza Type A RNA (NEGATIVE) Influenza Type B RNA (NEGATIVE) SARS-CoV-2 RNA (NAZIA) (NEGATIVE) 06/28/20 06/28/20 06/28/20 Range/Units 08:35 09:35 10:35 WBC (4.0-11.0) K/uL RBC (4.30-5.90) M/uL Hgb (12.0-16.0) g/dL Hct (36.0-46.0) % MCV (80.0-98.0) fL MCH (27.0-32.0) pg MCHC (31.0-37.0) g/dL RDW Std Deviation (28.0-62.0) fl RDW Coeff of Manav (11.0-15.0) % Plt Count (150-400) K/uL MPV (7.40-12.00) fL Neut % (Auto) (48.0-80.0) % Lymph % (Auto) (16.0-40.0) % [place] % (Auto) (0.0-15.0) % Eos % (Auto) (0.0-7.0) % Baso % (Auto) (0.0-1.5) % Neut # (Auto) (1.4-5.7) K/uL Lymph # (Auto) (0.6-2.4) K/uL [place] # (Auto) (0.0-0.8) K/uL Eos # (Auto) (0.0-0.7) K/uL Baso # (Auto) (0.0-0.1) K/uL Nucleated RBC % /100WBC Nucleated RBCs # K/uL INR 0.98 APTT 27.9 (18.6-31.3) SEC D-Dimer, Quantitative 0.67 H (0.0-0.50) mg/L FEU Lactate (0.20-2.00) mmol/L Sodium (136-145) mmol/L Potassium (3.5-5.1) mmol/L Chloride (98-107) mmol/L Carbon Dioxide (21.0-32.0) mmol/L BUN (7.0-18.0) mg/dL Creatinine (0.6-1.0) mg/dL Est Cr Clr Drug Dosing mL/min Estimated GFR (MDRD) ml/min Glucose (74-106) mg/dL Calcium (8.5-10.1) mg/dL Magnesium (1.8-2.4) mg/dL Total Bilirubin (0.2-1.0) mg/dL AST (15-37) IU/L ALT (14-63) IU/L Alkaline Phosphatase (46-116) U/L Troponin I (0.000-0.056) ng/mL C-Reactive Protein (0.00-0.90) mg/dL Total Protein (6.4-8.2) g/dL Albumin (3.4-5.0) g/dL Globulin (2.6-4.0) g/dL Albumin/Globulin Ratio (0.9-1.6) Lipase (73-393) U/L TSH 3rd Generation (0.36-3.74) uIU/mL Urine Color YELLOW Urine Appearance CLEAR Urine pH 5.5 (5.0-8.0) Ur Specific [place] 1.025 (1.001-1.035) Urine Protein NEGATIVE (NEGATIVE) mg/dL Urine Glucose (UA) NEGATIVE (NEGATIVE) mg/dL Urine Ketones NEGATIVE (NEGATIVE) mg/dL Urine Occult Blood NEGATIVE (NEGATIVE) Urine Nitrite NEGATIVE (NEGATIVE) Urine Bilirubin NEGATIVE (NEGATIVE) Urine Urobilinogen 0.2 (<2.0) EU/dL Ur Leukocyte Esterase NEGATIVE (NEGATIVE) Urine HCG, Qual (NEGATIVE) Influenza Type A RNA NEGATIVE (NEGATIVE) Influenza Type B RNA NEGATIVE (NEGATIVE) SARS-CoV-2 RNA (NAZIA) NEGATIVE (NEGATIVE) 06/28/20 Range/Units 10:35 WBC (4.0-11.0) K/uL RBC (4.30-5.90) M/uL Hgb (12.0-16.0) g/dL Hct (36.0-46.0) % MCV (80.0-98.0) fL MCH (27.0-32.0) pg MCHC (31.0-37.0) g/dL RDW Std Deviation (28.0-62.0) fl RDW Coeff of Manav (11.0-15.0) % Plt Count (150-400) K/uL MPV (7.40-12.00) fL Neut % (Auto) (48.0-80.0) % Lymph % (Auto) (16.0-40.0) % [place] % (Auto) (0.0-15.0) % Eos % (Auto) (0.0-7.0) % Baso % (Auto) (0.0-1.5) % Neut # (Auto) (1.4-5.7) K/uL Lymph # (Auto) (0.6-2.4) K/uL [place] # (Auto) (0.0-0.8) K/uL Eos # (Auto) (0.0-0.7) K/uL Baso # (Auto) (0.0-0.1) K/uL Nucleated RBC % /100WBC Nucleated RBCs # K/uL INR APTT (18.6-31.3) SEC D-Dimer, Quantitative (0.0-0.50) mg/L FEU Lactate (0.20-2.00) mmol/L Sodium (136-145) mmol/L Potassium (3.5-5.1) mmol/L Chloride (98-107) mmol/L Carbon Dioxide (21.0-32.0) mmol/L BUN (7.0-18.0) mg/dL Creatinine (0.6-1.0) mg/dL Est Cr Clr Drug Dosing mL/min Estimated GFR (MDRD) ml/min Glucose (74-106) mg/dL Calcium (8.5-10.1) mg/dL Magnesium (1.8-2.4) mg/dL Total Bilirubin (0.2-1.0) mg/dL AST (15-37) IU/L ALT (14-63) IU/L Alkaline Phosphatase (46-116) U/L Troponin I (0.000-0.056) ng/mL C-Reactive Protein (0.00-0.90) mg/dL Total Protein (6.4-8.2) g/dL Albumin (3.4-5.0) g/dL Globulin (2.6-4.0) g/dL Albumin/Globulin Ratio (0.9-1.6) Lipase (73-393) U/L TSH 3rd Generation (0.36-3.74) uIU/mL Urine Color Urine Appearance Urine pH (5.0-8.0) Ur Specific [place] (1.001-1.035) Urine Protein (NEGATIVE) mg/dL Urine Glucose (UA) (NEGATIVE) mg/dL Urine Ketones (NEGATIVE) mg/dL Urine Occult Blood (NEGATIVE) Urine Nitrite (NEGATIVE) Urine Bilirubin (NEGATIVE) Urine Urobilinogen (<2.0) EU/dL Ur Leukocyte Esterase (NEGATIVE) Urine HCG, Qual NEGATIVE (NEGATIVE) Influenza Type A RNA (NEGATIVE) Influenza Type B RNA (NEGATIVE) SARS-CoV-2 RNA (NAZIA) (NEGATIVE) Meds: Medications Generic Name Dose Route Start Last Admin Trade Name Freq PRN Reason Stop Dose Admin Sodium Chloride 10 ml 06/28/20 08:39 06/28/20 08:49 Saline Flush FLUSH 10 ml ASDIRECTED PRN Administration Keep Vein Open Sodium Chloride 2.5 ml 06/28/20 08:39 06/28/20 08:49 Saline Flush FLUSH 2.5 ml ASDIRECTED PRN Administration Keep Vein Open Discontinued Medications Generic Name Dose Route Start Last Admin Trade Name Freq PRN Reason Stop Dose Admin Aspirin 324 mg 06/28/20 08:39 06/28/20 08:49 Aspirin PO 06/28/20 08:40 324 mg ONETIME ONE Administration Dexamethasone 8 mg 06/28/20 08:39 06/28/20 08:49 Decadron IVPUSH 06/28/20 08:40 8 mg ONETIME ONE Administration Sodium Chloride 1,000 mls @ 999 mls/hr 06/28/20 08:39 06/28/20 08:49 Normal Saline IV 06/28/20 09:39 999 mls/hr .Bolus ONE Administration Morphine Sulfate 4 mg 06/28/20 08:39 06/28/20 08:50 Morphine IVPUSH 01/27/21 08:40 4 mg ONETIME ONE Administration Ondansetron HCl 4 mg 06/28/20 08:39 06/28/20 08:50 Zofran IVPUSH 06/28/20 08:40 4 mg ONETIME ONE Administration - Re-Assessments/Exams Free Text/Narrative Re-Assessment/Exam: 06/28/20 09:44 Patient's troponin is negative. Her D-dimer is elevated. Will get a CTA chest to rule out pulmonary embolism or other pulmonary pathology. Head CT is normal. Chest x-ray is normal. 06/28/20 11:31 Patient feels substantially better. CT imaging is unremarkable. Her vitals have normalized. 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 I explained return precautions at length and patient seems to demonstrate very good health literacy. 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 This information is to outline your options for follow-up care. We provide all patients seen in our emergency department with a follow-up referral. The need for follow-up, as well as the timing and circumstances, are variable depending upon the specifics of your emergency department visit. If you don't have a primary care physician on staff, we will provide you with a referral. We always advise you to contact your personal physician following an emergency department visit to inform them of the circumstance of the visit and for follow-up with them and/or the need for any referrals to a consulting specialist. The emergency department will also refer you to a specialist when appropriate. This referral assures that you have the opportunity for follow-up care with a specialist. All of these measure are taken in an effort to provide you with optimal care, which includes your follow-up. Under all circumstances we always encourage you to contact your private physician who remains a resource for coordinating your care. When calling for follow-up care, please make the office aware that this follow-up is from your recent emergency room visit. If for any reason you are refused follow-up, please contact the [facility] Emergency Department at and asked to speak to the emergency department charge nurse. Please follow up with your primary care physician. If you do not have a primary care physician, see below: [facility] [address] [place] [id number] [facility] [address] [place] [address] [facility] [address] [place] [id number] Sepsis Event Note (ED) - Evaluation Sepsis Screening Result: No Definite Risk - Focused Exam Vital Signs: Vital Signs Temp Pulse Resp BP Pulse Ox 06/28/20 10:30 72 118/82 99 06/28/20 09:31 79 16 111/81 96 06/28/20 09:04 87 16 119/80 96 06/28/20 08:35 98.1 F 111 H 16 130/80 100 - My Orders Last 24 Hours: My Active Orders 06/28/20 08:39 EKG Documentation Completion [RC] STAT Sodium Chloride 0.9% [Saline Flush] 10 ml FLUSH ASDIRECTED PRN Sodium Chloride 0.9% [Saline Flush] 2.5 ml FLUSH ASDIRECTED PRN 06/28/20 08:40 Saline Lock Insert [OM.PC] Stat - Assessment/Plan Last 24 Hours: My Active Orders 06/28/20 08:39 EKG Documentation Completion [RC] STAT Sodium Chloride 0.9% [Saline Flush] 10 ml FLUSH ASDIRECTED PRN Sodium Chloride 0.9% [Saline Flush] 2.5 ml FLUSH ASDIRECTED PRN 06/28/20 08:40 Saline Lock Insert [OM.PC] Stat
[2020-06-28 09:29] LABS: BLOOD UREA NITROGEN,BUN 10 mg/dL (7.0-18.0); CARBON DIOXIDE,CO2 24.4 mmol/L (21.0-32.0); CHLORIDE,CL 106 mmol/L (98-107); GLUCOSE RANDOM 111 mg/dL (74-106); LIPASE 90 U/L (73-393); POTASSIUM,K 3.8 mmol/L (3.5-5.1); SODIUM,NA 140 mmol/L (136-145)
--- NOTE | 2020-06-28 09:41 | CT ---
INDICATION: Headache COMPARISON: Head CT dated 02/25/2020 TECHNIQUE: A CT volumetric acquisition was performed of the brain without IV contrast. FINDINGS: There is no evidence of a subdural or epidural hematoma. There is no evidence of subarachnoid hemorrhage or intraparenchymal bleeding. The CT images reveal a normal appearance of the cerebral ventricles and basal cisterns. There is no evidence of localized tissue infarction or mass effect. There is normal ashley white matter differentiation. The mastoid air cells and middle ear cavities are clear. The calvarium appears intact. There is normal aeration of the visualized paranasal sinuses. IMPRESSION: Negative head CT. Please note that all CT scans at this facility use dose modulation, iterative reconstruction, and/or weight-based dosing when appropriate to reduce radiation dose to as low as reasonably achievable. Dictated by Ryan Clark MD @ Jun 28 2020 9:37AM Signed by Dr. Ryan Clark @ Jun 28 2020 9:40AM
--- NOTE | 2020-06-28 09:41 | CR ---
INDICATION: Chest pain COMPARISON: Portable chest dated 02/25/2020 TECHNIQUE: Purple chest performed at 9:15 a.m. FINDINGS: The lungs are clear. The heart, mediastinum and pulmonary vessels are of normal size. There is no evidence of pleural fluid. IMPRESSION: Negative chest. Dictated by Ryan Clark MD @ Jun 28 2020 9:40AM Signed by Dr. Ryan Clark @ Jun 28 2020 9:41AM
[2020-06-28 10:24] LABS: CORONAVIRUS COVID-19 NAA NEGATIVE (NEGATIVE); INFLUENZA A NAA NEGATIVE (NEGATIVE); INFLUENZA B NAA NEGATIVE (NEGATIVE)
--- NOTE | 2020-06-28 11:20 | CT ---
Indication: Chest pain Technique: A CT volumetric acquisition was performed of the thorax during bolus infusion 80 cc of Isovue 370. Comparison: None Findings: The CT images demonstrate uniform vascular enhancement within the pulmonary arteries. There are no suspicious filling defects which would indicate pulmonary thromboemboli. Heart size appears normal. There is no evidence pericardial fluid or pleural fluid. There is no evidence of lymph node enlargement within the central mediastinum or either axilla. The esophagus appears normal. The lungs show symmetric inflation. There are no suspicious nodules, masses or infiltrates. There is no evidence of pneumothorax or pneumomediastinum. Pulmonary vessels are normal in size with no evidence of CHF. Impression: No evidence of pulmonary thromboembolism, CHF or pneumothorax. Please note that all CT scans at this facility use dose modulation, iterative reconstruction, and/or weight-based dosing when appropriate to reduce radiation dose to as low as reasonably achievable. Dictated by Ryan Clark MD @ Jun 28 2020 11:14AM Signed by Dr. Ryan Clark @ Jun 28 2020 11:17AM
[2020-06-28 12:09] VITALS: BP 122/88; PULSE 77
== END 2020-06-28 11:43 | disposition home or self-care (01) ==
LOC: MW.ED 08:30
DX: M35.01 Sjogren syndrome with keratoconjunctivitis (principal); Z20.822 Contact with and (suspected) exposure to COVID-19; E66.9 Obesity, unspecified; Z68.32 Body mass index [BMI] 32.0-32.9, adult
CPT/HCPCS: 0240U; 70450; 71045; 71275; 80053; 81003; 81025; 83605; 83690; 83735; 84443; 84484; 85025; 85379; 85610; 85730; 86140; 93005; 96374; 96375; 99285; A9270; J1100; J2270; J2405; J7030; 93010; 99283

== ENCOUNTER 2021-08-05 09:55 | Inpatient (IN) | payer BC ==
[2021-08-05] MEDS ORDERED: Misoprostol 25 MCG (1/4 of 100 MCG) Tab PO SCH (23:45)
[2021-08-05] MEDS ORDERED: Oxytocin/0.9 % Sodium Chloride 30 UNIT/500 ML BAG IV SCH ×2 (23:45)
[2021-08-05] MEDS ORDERED: Misoprostol 25 MCG (1/4 of 100 MCG) Tab VAG PRN ×2 (23:48)
[2021-08-05] MEDS ORDERED: Terbutaline 1 MG/ML SDV SUBCUT PRN (23:48)
[2021-08-05] MEDS ORDERED: Lidocaine 1% 50 ML MDV INJECT PRN (23:52)
[2021-08-05] MEDS ORDERED: Water For Irrigation,Sterile 1,000 ML Container IRR PRN (23:52)
[2021-08-05] MEDS ORDERED: Carboprost Tromethamine 250 MCG/1 ML Amp IM PRN (23:52)
[2021-08-05] MEDS ORDERED: Sodium Chloride 0.9% 2.5 ML Syringe FLUSH PRN (23:52)
[2021-08-05] MEDS ORDERED: Methylergonovine 0.2 MG/1 ML Amp IM PRN (23:52)
[2021-08-05] MEDS ORDERED: Tranexamic Acid 1,000 MG in Sodium Chloride 0.9% 100 ML IV PRN (23:52)
[2021-08-05] MEDS ORDERED: Sodium Chloride 0.9% 10 ML Syringe FLUSH PRN (23:52)
[2021-08-05] MEDS ORDERED: Sodium Chloride 0.9% 20 ML SDV IV PRN (23:52)
[2021-08-05] MEDS ORDERED: Misoprostol 200 MCG Tab PO PRN (23:52)
[2021-08-05] MEDS ORDERED: Butorphanol 1 MG/ML SDV IVPUSH PRN (23:52)
[2021-08-05] MEDS ORDERED: Ondansetron 4 MG/2 ML SDV IVPUSH PRN (23:52)
[2021-08-06] MEDS ORDERED: Calcium Carbonate 500 MG Tab.Chew PO PRN (01:38)
[2021-08-06] MEDS: Lactated Ringers 1,000 ML IV SCH ×2 (02:05→06:26)
[2021-08-06] MEDS ORDERED: Albuterol 0.083% 2.5 MG/3 ML Neb Soln NEB PRN (09:36)
[2021-08-06] MEDS ORDERED: diphenhydrAMINE 50 MG/ML SDV IVPUSH PRN ×2 (09:36→13:26)
[2021-08-06] MEDS ORDERED: Acetaminophen/oxyCODONE 325-5 MG Tab PO PRN ×2 (09:36→13:26)
[2021-08-06] MEDS ORDERED: Morphine 4 MG/ML VIAL IVPUSH PRN (09:36)
[2021-08-06] MEDS ORDERED: Ondansetron 4 MG/2 ML SDV IVPUSH PRN ×3 (09:36→13:26)
[2021-08-06] MEDS ORDERED: Naloxone 0.4 MG/ML SDV IVPUSH PRN (09:36)
[2021-08-06] MEDS ORDERED: Metoclopramide 10 MG/2 ML SDV IVPUSH PRN (09:36)
[2021-08-06] MEDS ORDERED: HYDROmorphone 1 MG/ML Syringe IVPUSH PRN (09:36)
[2021-08-06] MEDS ORDERED: fentaNYL 100 MCG/2 ML SDV IVPUSH PRN ×2 (09:36)
[2021-08-06] MEDS ORDERED: Dexamethasone 4 MG/ML 5 ML MDV ONE (09:54)
[2021-08-06] MEDS ORDERED: fentaNYL 100 MCG/2 ML SDV ONE (09:54)
[2021-08-06] MEDS ORDERED: Oxytocin 10 Units/1 ML SDV ONE (09:54)
[2021-08-06] MEDS ORDERED: Ropivacaine 0.5% 5 MG/ML 30 ML SDV ONE (09:54)
[2021-08-06] MEDS ORDERED: Ondansetron 4 MG/2 ML SDV ONE (09:54)
[2021-08-06] MEDS ORDERED: Sodium Chloride 0.9% 10 ML Syringe FLUSH PRN (09:55)
[2021-08-06] MEDS ORDERED: ceFAZolin 2 GM in Premix Bag 1 BAG IV ONE (09:55)
[2021-08-06] MEDS ORDERED: Citric Acid/Sodium Citrate Solution 30 ML Cup PO ONE (09:55)
[2021-08-06] MEDS ORDERED: Sodium Chloride 0.9% 2.5 ML Syringe FLUSH PRN (09:55)
[2021-08-06] MEDS ORDERED: Sodium Chloride 0.9% 20 ML SDV IV PRN (09:55)
[2021-08-06] MEDS ORDERED: Morphine PF 10 MG/10 ML SDV ONE (09:55)
[2021-08-06] MEDS ORDERED: Oxytocin/0.9 % Sodium Chloride 30 UNIT/500 ML BAG IV SCH (10:00)
[2021-08-06] MEDS ORDERED: Lactated Ringers 1,000 ML IV SCH ×2 (10:00→13:30)
[2021-08-06] MEDS ORDERED: Octyl 2-Cyanoacrylate 1 Tube ONE (11:23)
[2021-08-06] MEDS ORDERED: Misoprostol 200 MCG Tab RECTAL PRN (13:26)
[2021-08-06] MEDS ORDERED: Lanolin 100% Cream 7 GM Tube TOP PRN (13:26)
[2021-08-06] MEDS ORDERED: Methylergonovine 0.2 MG/1 ML Amp IM PRN (13:26)
[2021-08-06] MEDS ORDERED: Bisacodyl 10 MG Supp RECTAL PRN (13:26)
[2021-08-06] MEDS ORDERED: Tranexamic Acid 1,000 MG in Sodium Chloride 0.9% 100 ML IV PRN (13:26)
[2021-08-06] MEDS ORDERED: Oxytocin 10 Units/1 ML SDV IM PRN (13:26)
[2021-08-06] MEDS: Ketorolac 30 MG/ML SDV IVPUSH SCH ×2 (13:58→20:44)
[2021-08-06] MEDS: Docusate Sodium 100 MG Cap PO SCH (20:40)
[2021-08-07] MEDS: Ketorolac 30 MG/ML SDV IVPUSH SCH ×3 (02:58→15:12)
[2021-08-07] MEDS: Docusate Sodium 100 MG Cap PO SCH ×2 (09:06→22:00)
[2021-08-07] MEDS: Acetaminophen/oxyCODONE 325-5 MG Tab PO PRN ×2 (12:45→18:25)
[2021-08-08] MEDS: Ibuprofen 800 MG Tab PO PRN ×2 (01:16→12:16)
[2021-08-08] MEDS: Acetaminophen/oxyCODONE 325-5 MG Tab PO PRN ×3 (01:16→12:17)
[2021-08-08] MEDS: Docusate Sodium 100 MG Cap PO SCH ×2 (01:16→09:26)
[2021-08-08 13:24] VITALS: BP 106/68; PULSE 92
== END 2021-08-08 13:00 | disposition home or self-care (01) | DRG 540 ==
LOC: MW.OB 09:55 → OBSVTOIN 08-06 09:55 → MW.OB 08-06 18:04
PROVIDERS: ADMIT Obstetrics & Gynecology Obstetrics; ATTEND Obstetrics & Gynecology Obstetrics
PROC: 10D00Z1 Extraction of Products of Conception, Low, Open Approach (ICD-10-PCS; principal; 2021-08-06)
DX: O98.52 Other viral diseases complicating childbirth (principal); B00.9 Herpesviral infection, unspecified; Z37.0 Single live birth; O99.62 Diseases of the digestive system complicating childbirth; K21.9 Gastro-esophageal reflux disease without esophagitis; O99.214 Obesity complicating childbirth; Z20.822 Contact with and (suspected) exposure to COVID-19; Z3A.38 38 weeks gestation of pregnancy
CPT/HCPCS: 01961; 36415; 59025; 64488; 81003; 85014; 85018; 85027; 86592; 86850; 86900; 86901; A9270-GY; J0131; J1100; J1885; J2274; J2370; J2405; J2590; J2795; J3010; J7120; U0002

== ENCOUNTER 2021-10-10 02:06 | Emergency (ER) | payer BC ==
[2021-10-10] MEDS ORDERED: Alum Hydro/Mag Hydro/Simeth XS 15 ML, Lidocaine 2% 5 ML PO ONE ×2 (02:26)
[2021-10-10] MEDS ORDERED: Aspirin 81 MG Tab.Chew PO ONE (02:26)
[2021-10-10] MEDS ORDERED: Famotidine 20 MG Tab PO ONE (02:26)
[2021-10-10 02:57] LABS: BLOOD UREA NITROGEN,BUN 15 mg/dL (7.0-18.0); CARBON DIOXIDE,CO2 25.2 mmol/L (21.0-32.0); CHLORIDE,CL 101 mmol/L (98-107); GLUCOSE RANDOM 94 mg/dL (74-106); POTASSIUM,K 3.8 mmol/L (3.5-5.1); SODIUM,NA 137 mmol/L (136-145)
[2021-10-10 04:00] VITALS: BP 125/75; PULSE 77
== END 2021-10-10 04:00 | disposition home or self-care (01) ==
LOC: MW.ED 02:06
DX: R07.89 Other chest pain (principal); K29.70 Gastritis, unspecified, without bleeding; K21.9 Gastro-esophageal reflux disease without esophagitis; E66.9 Obesity, unspecified; Z68.34 Body mass index [BMI] 34.0-34.9, adult; Z86.16 Personal history of COVID-19; Z79.899 Other long term (current) drug therapy
CPT/HCPCS: 36415; 71045; 71045-26; 80053; 83735; 84484; 85025; 93005; 93010; 99284; 99285-25; A9270-GY

== ENCOUNTER 2022-04-03 09:21 | Day surgery (SDC) | payer OTHER ==
[~2022-04-03 09:21] MED LIST: Lactated Ringers 1,000 ML IV SCH
[2022-04-03] MEDS ORDERED: Propofol 200 MG/20 ML SDV ONE ×2 (10:17→11:04)
[2022-04-03] MEDS ORDERED: Midazolam 1 MG/ML 2 ML SDV ONE (10:17)
[2022-04-03] MEDS ORDERED: fentaNYL 100 MCG/2 ML SDV ONE (10:17)
[2022-04-03 11:38] VITALS: BP 128/80; PULSE 70
== END 2022-04-03 12:00 | disposition home or self-care (01) ==
LOC: MW.SDS 09:21
PROVIDERS: ATTEND Surgery
DX: K29.51 Unspecified chronic gastritis with bleeding (principal); F41.9 Anxiety disorder, unspecified; F32.A Depression, unspecified; K21.9 Gastro-esophageal reflux disease without esophagitis; E66.9 Obesity, unspecified; Z86.16 Personal history of COVID-19; Z87.891 Personal history of nicotine dependence; Z86.73 Personal history of transient ischemic attack (TIA), and cerebral infarction without residual deficits; Z79.899 Other long term (current) drug therapy; Z68.34 Body mass index [BMI] 34.0-34.9, adult
CPT/HCPCS: 43239; 45378; 81025; J2250; J2704; J3010; J7120; 00813

== ENCOUNTER 2022-08-13 21:46 | Emergency (ER) | payer SELFPAY | END 2022-08-13 22:50 | disposition left against medical advice (07) | LOC: MW.ED 21:46 | DX: Z53.21 Procedure and treatment not carried out due to patient leaving prior to being seen by health care provider (principal) ==

== ENCOUNTER 2022-08-28 09:27 | Emergency (ER) | payer SELFPAY ==
[2022-08-28] MEDS ORDERED: LORazepam 2 MG/ML SDV IVPUSH ONE (10:03)
[2022-08-28 10:29] LABS: BLOOD UREA NITROGEN,BUN 11 mg/dL (7.0-18.0); CARBON DIOXIDE,CO2 22.9 mmol/L (21.0-32.0); CHLORIDE,CL 101 mmol/L (98-107); ESTIMATED GFR 73 mL/min (>60); GLUCOSE RANDOM 117 mg/dL (74-106); POTASSIUM,K 2.9 mmol/L (3.5-5.1); SODIUM,NA 137 mmol/L (136-145)
[2022-08-28] MEDS ORDERED: Potassium Bicarbonate 25 MEQ Tab.EFF PO ONE (11:02)
[2022-08-28] MEDS ORDERED: Potassium Chloride 20 MEQ Tab.ER PO STA (11:38)
[2022-08-28 12:13] VITALS: BP 113/78; PULSE 81
== END 2022-08-28 12:21 | disposition home or self-care (01) ==
LOC: MW.ED 09:27
DX: F41.9 Anxiety disorder, unspecified (principal); E87.6 Hypokalemia; E66.9 Obesity, unspecified; Z68.34 Body mass index [BMI] 34.0-34.9, adult; Z79.899 Other long term (current) drug therapy; Z86.16 Personal history of COVID-19; Z98.890 Other specified postprocedural states
CPT/HCPCS: 36415; 71045; 80048; 84484; 85025; 93005; 96374; 99285; A9270; J2060

== ENCOUNTER 2022-11-05 23:06 | Emergency (ER) | payer SELFPAY ==
[2022-11-05] MEDS ORDERED: Famotidine 20 MG/2 ML SDV IVPUSH ONE (23:42)
[2022-11-05] MEDS ORDERED: Sodium Chloride 0.9% 1,000 ML IV ONE (23:42)
[2022-11-05] MEDS ORDERED: Cyclobenzaprine 10 MG Tab PO ONE (23:43)
[2022-11-06 00:04] LABS: BASOPHILS PERCENT AUTO 0.4 % (0.0-1.5); EOSINOPHILS ABSOLUTE AUTO 0.3 K/uL (0.0-0.7); EOSINOPHILS PERCENT AUTO 3.4 % (0.0-7.0); HEMOGLOBIN 11.4 g/dL (12.0-16.0); MEAN CORPUSCULAR HEMOGLOBIN 27.7 pg (27.0-32.0); MEAN CORPUSCULAR HGB CONC 32.6 g/dL (31.0-37.0); MEAN CORPUSCULAR VOLUME 85.2 fL (80.0-98.0); MONOCYTES ABSOLUTE AUTO 0.8 K/uL (0.0-0.8); NEUTROPHILS ABSOLUTE AUTO 5.8 K/uL (1.4-5.7); NEUTROPHILS PERCENT AUTO 58.2 % (48.0-80.0); PLATELET COUNT,PLT 309 K/uL (150-400); RED BLOOD CELL COUNT 4.11 M/uL (4.30-5.90); WHITE BLOOD CELL COUNT,WBC 9.92 K/uL (4.0-11.0)
[2022-11-06 00:32] LABS: INR 0.94 (0.86-1.11); PTT,PARTIAL THROMBOPLSTIN TIME 29.1 SEC (23.9-30.7)
[2022-11-06 00:34] LABS: A/G RATIO 0.8 (0.9-1.6); ALANINE AMINOTRANSFERASE,ALT 22 IU/L (14-63); ALBUMIN 3.4 g/dL (3.4-5.0); ALKALINE PHOSPHATASE 94 U/L (46-116); ASPARTATE AMNIOTRANSFERASE,AST 15 IU/L (15-37); BILIRUBIN TOTAL 0.2 mg/dL (0.2-1.0); BLOOD UREA NITROGEN,BUN 13 mg/dL (7.0-18.0); CARBON DIOXIDE,CO2 27.3 mmol/L (21.0-32.0); CHLORIDE,CL 100 mmol/L (98-107); CREATININE 0.9 mg/dL (0.6-1.0); EST CRCL DRUG DOSING (CG) 77.01 mL/min; GLUCOSE RANDOM 110 mg/dL (74-106); MAGNESIUM 1.9 mg/dL (1.8-2.4); POTASSIUM,K 3.6 mmol/L (3.5-5.1); PROTEIN TOTAL,TP 7.7 g/dL (6.4-8.2); SODIUM,NA 137 mmol/L (136-145)
[2022-11-06 00:35] LABS: ESTIMATED GFR 82 mL/min (>60)
[2022-11-06] MEDS ORDERED: Iopamidol 755 MG/ML 500 ML Multipack Bottle IVPUSH STA (01:34)
[2022-11-06 02:12] VITALS: BP 123/74; PULSE 78
== END 2022-11-06 02:11 | disposition home or self-care (01) ==
LOC: MW.ED 23:06
DX: R07.9 Chest pain, unspecified (principal); E66.9 Obesity, unspecified; Z86.16 Personal history of COVID-19; Z68.34 Body mass index [BMI] 34.0-34.9, adult
CPT/HCPCS: 36415; 71275; 80053; 83735; 83880; 84443; 84484; 84703; 85025; 85610; 85730; 93005; 96374; 99285; A9270; J3490; J7030; Q9967

== ENCOUNTER 2023-05-18 15:29 | Emergency (ER) | payer OTHER, MEDICAID ==
[2023-05-18 16:24] VITALS: BP 134/79; PULSE 78
[2023-05-18] MEDS ORDERED: Lidocaine 4% 1 each Patch TOP STA (16:45)
[2023-05-18] MEDS ORDERED: Methocarbamol 750 MG TAB PO STA (16:45)
== END 2023-05-18 18:57 | disposition home or self-care (01) ==
LOC: MW.ED 15:29
DX: M54.6 Pain in thoracic spine (principal); R07.89 Other chest pain; E66.9 Obesity, unspecified; Z86.16 Personal history of COVID-19; Z79.899 Other long term (current) drug therapy; V49.40XA Driver injured in collision with unspecified motor vehicles in traffic accident, initial encounter
CPT/HCPCS: 71101; 73502; 99284; A9270; 99283